=== PATIENT | male | born 1945 | race Caucasian/White ===

== ENCOUNTER → 2020-04-10 | Outpatient (CLI) | payer OTHER ==
[~2020-04-10] MED LIST: AMBIEN 10MG10 MG PO; AMOXICILLIN 25250 MG PO; AMOXICILLIN 8751 TAB PO; ASPIRIN 32325 MG/TA1 PO; ASPIRIN 32325 MG/TAB PO; ASPIRIN 81M81 MG/TA2 PO; ASPIRIN E.C. 8181 MG PO; CARDENE 20MG CA20 M1 PO; CARDI-OMEGA1000 MG PO; CARVEDILOL6.25 MG PO; COLACE 100100 MG/CAP PO; COREG 6.256.25 MG/TA PO; COREG3.125 MG PO; COREG6.25 MG PO; EFFEXOR XR150 MG PO; EFFIENT10 MG PO; ENALAPRIL2.5 MG PO; FISH OIL1000 MG PO; GLUCOPHAGE500 MG/TAB PO; IMDUR 60MG60 MG/TAB PO; IMDUR30 MG PO; IMDUR60 MG PO; ISOSORBIDE MONO20 MG PO; LIVALO PO; LIVALO4 MG PO; MAREPA1200 MG PO; METFORMIN500 MG PO; NITROQUICK0.4 MG SL; NITROSTAT0.4 MG/TAB SL; NITROTAB0.4 MG SL; PEPCID 20MG TAB20 MG PO; PLAVIX 75MG TAB75 MG PO; PRALUENT P75 MG/1 ML SQ; RED RICE YEAST E0.4%; VASOTEC 2.2.5 MG/TAB PO; VENLAFAXINE HCL75 M1 PO; VITAMIN D NATU400 IU PO; VITAMIN D1000 IU PO; ZANTAC 150MG T150 MG PO; ZOLOFT50 MG PO; [UNRECOGNIZED DRUG - OTHER]
== END ==
LOC: COL.RAD 04-09 08:00
DX: Z01.812 Encounter for preprocedural laboratory examination (principal); E11.69 Type 2 diabetes mellitus with other specified complication; I10 Essential (primary) hypertension; K57.30 Diverticulosis of large intestine without perforation or abscess without bleeding; Z95.828 Presence of other vascular implants and grafts
CPT/HCPCS: Q9967